=== PATIENT | female | born 1975 | race Caucasian/White ===

== ENCOUNTER 2018-09-04 06:00 | Day surgery (SDC) | payer OTHER ==
[~2018-09-04] VITALS: Ht 154.9 cm; Wt 74.8 kg
[2018-09-05] MEDS ORDERED: ULTRACET PO (12:00)
[2018-09-05] MEDS ORDERED: MOTRIN IB200 MG PO (12:00)
[2018-09-05] MEDS ORDERED: SURFAK240 M1 PO (12:00)
== END 2018-09-05 09:00 | disposition home or self-care (01) ==
LOC: O/R 06:00 → CIR.AMB 06:00 → SURH 06:00 → O/R 06:01 → SURH 06:01 → OB/GYN 06:01 → EDSTATUS 09:30 → SURH 09:30 → O/R 11:18 → OB/GYN 11:18 → SURH 12:00 → CIR.AMB 09-05 09:00 → OB/GYN 09-05 12:38
DX: N92.0 Excessive and frequent menstruation with regular cycle (principal); R10.2 Pelvic and perineal pain